=== PATIENT | male | born 1960 | race Two or more races ===

== ENCOUNTER 2021-11-10 09:55 | Emergency (ER) | payer OTHER ==
[~2021-11-10] VITALS: Ht 172.7 cm; Wt 77.3 kg
[2021-11-10] MEDS ORDERED: LIDOCAINE 1% 10 ML VIAL SQ ONE (11:30)
[2021-11-10] MEDS ORDERED: POVIDONE-IODINE 10% 15 ML SOLUTION UD TP ONE (11:30)
[2021-11-10] MEDS ORDERED: BACITRACIN 0.9 GM PACKET OINTMENT TP ONE (11:30)
[2021-11-10] MEDS ORDERED: ACETAMINOPHEN 500 MG TABLET PO ONE (11:30)
[2021-11-10] MEDS ORDERED: TraMADol HCL 50 MG TABLET PO ONE (11:30)
[2021-11-10] MEDS ORDERED: CONTAINER EMPTY PERC SCH (11:45)
[2021-11-10] MEDS ORDERED: BUPIVACAINE HCL 0.25% PERC SCH (11:45)
[2021-11-10] MEDS ORDERED: BUPIVACAINE HCL/PF 0.25% 10 ML VIAL SQ ONE (11:45)
[2021-11-10] MEDS ORDERED: PERTUSS(ACELL),DIPH,TET VAC/PF 0.5 ML SYRINGE IM. ONE (12:00)
[2021-11-10 12:37] VITALS: BP 122/84
== END 2021-11-10 14:20 | disposition home or self-care (01) ==
LOC: EMS 09:55
DX: S51.812A Laceration without foreign body of left forearm, initial encounter (principal); W26.9XXA Contact with unspecified sharp object(s), initial encounter; Y93.89 Activity, other specified; Y92.89 Other specified places as the place of occurrence of the external cause; Y99.8 Other external cause status
CPT/HCPCS: 99284; 90715; 90471; 12001; J3490

== ENCOUNTER 2023-09-20 12:43 | Emergency (ER) | payer SELFPAY ==
[~2023-09-20] VITALS: Ht 170.2 cm; Wt 80.0 kg
[2023-09-20 14:34] LABS: BASOPHILS % (AUTO) 0.3 % (0.0-2.0); EOSINOPHILS % (AUTO) 2.5 % (1.0-6.0); HEMATOCRIT 43.3 % (41-53); HEMOGLOBIN 14.6 g/dL (13.5-17.5); LYMPHOCYTES # (AUTO) 1.8 K/uL (1.0-4.8); LYMPHOCYTES % (AUTO) 17.5 % (22.0-44.0); MEAN CORPUSCULAR HEMOGLOBIN 29.2 pg (26.0-34.0); MEAN CORPUSCULAR HGB CONC 33.7 G/dL (31.0-37.0); MEAN CORPUSCULAR VOLUME 87 fL (80-100); MONOCYTES % (AUTO) 9.6 % (2.0-9.0); NEUTROPHILS # (AUTO) 7.2 K/uL (1.8-7.7); NEUTROPHILS % (AUTO) 70.1 % (40.0-70.0); PLATELET COUNT (AUTO) 248 K/uL (150-450); RED CELL DISTRIBUTION WIDTH 13.5 % (11.5-14.5); WHITE BLOOD COUNT (AUTO) 10.2 K/uL (4.5-11.0)
[2023-09-20 14:53] LABS: ANION GAP 7 mmol/L (8-16); CALCIUM, TOTAL 9.3 mg/dL (8.8-10.5); CARBON DIOXIDE 29 mmol/L (22-29); CHLORIDE 102 mmol/L (98-107); CREATININE 1.08 mg/dL (0.60-1.30); GLOMERULAR FILTR. RATE CALC > 60 mL/min (>60); GLUCOSE,RANDOM 123 mg/dL (70-110); POTASSIUM 4.7 mmol/L (3.5-5.1); SODIUM SERUM 138 mmol/L (136-145); UREA NITROGEN, BLOOD 13 mg/dL (7-18)
[2023-09-20 14:59] LABS: ALANINE AMINOTRANSFERASE 48 U/L (12-78); ALBUMIN 3.8 g/dL (3.4-5.0); ALKALINE PHOSPHATASE 112 U/L (46-116); ASPARTATE AMINOTRANSFERASE 39 U/L (15-37); BILIRUBIN,TOTAL 0.6 mg/dL (0.1-1.0); TOTAL PROTEIN, SERUM 8.5 g/dL (6.4-8.2)
[2023-09-20] MEDS ORDERED: IBUP-1554 PO (15:34)
[2023-09-20] MEDS ORDERED: GUAIFDM PO (15:34)
[2023-09-20] MEDS ORDERED: NYST100033 PO (15:34)
[2023-09-20] MEDS ORDERED: HYDR-4062 PO (15:34)
[2023-09-20] MEDS: IBUPROFEN 600 MG TABLET PO ONE (15:45)
[2023-09-20] MEDS: ACETAMINOPHEN/CODEINE 300-30 MG TABLET PO ONE (15:45)
[2023-09-20] MEDS: LIDOCAINE 2% VISCOUS 15 ML SOLUTION UDCUP PO ONE (15:45)
[2023-09-20 16:08] VITALS: BP 133/82; PULSE 73; RESP 18; TEMP 98.5
== END 2023-09-20 16:21 | disposition home or self-care (01) ==
LOC: EMS 12:44
DX: K12.1 Other forms of stomatitis (principal); B08.4 Enteroviral vesicular stomatitis with exanthem; Z98.890 Other specified postprocedural states
CPT/HCPCS: 80053; 85025; 99284

== ENCOUNTER 2024-05-25 14:58 | Emergency (ER) | payer MEDICARE, OTHER ==
[~2024-05-25] VITALS: Ht 162.6 cm; Wt 77.3 kg
[~2024-05-25 14:58] MED LIST: GUAIFDM PO; HYDR-4062 PO; IBUP-1554 PO; NYST100033 PO
[2024-05-25 15:15] VITALS: TEMP 98.2
[2024-05-25] MEDS: BACITRACIN 0.9 GM PACKET OINTMENT TP ONE (16:24)
[2024-05-25] MEDS: ACETAMINOPHEN 500 MG TABLET PO ONE (16:24)
[2024-05-25] MEDS: IBUPROFEN 600 MG TABLET PO ONE (16:24)
[2024-05-25] MEDS ORDERED: BACI28.410 TP (16:31)
[2024-05-25 16:48] VITALS: BP 112/62; PULSE 70; RESP 18; O2SAT 99
== END 2024-05-25 16:49 | disposition home or self-care (01) ==
LOC: EMS 14:58
DX: S61.217A Laceration without foreign body of left little finger without damage to nail, initial encounter (principal); S61.215A Laceration without foreign body of left ring finger without damage to nail, initial encounter; W19.XXXA Unspecified fall, initial encounter; Y93.89 Activity, other specified; Y92.89 Other specified places as the place of occurrence of the external cause; Y99.8 Other external cause status
CPT/HCPCS: 99284; Z7502; Z7610